=== PATIENT | female | born 1995 | race Caucasian/White ===

== ENCOUNTER 2016-06-13 13:40 | Observation (INO) | payer MEDICAID ==
[~2016-06-13] VITALS: Ht 30.5 cm; Wt 0.5 kg
[~2016-06-13 13:40] MED LIST: ATOR20TA PO; GEMF600T3 PO; METF-312 PO
[2016-06-13] MEDS ORDERED: InsuLIN REG 1unit/0.01ml Soln (100units/ml) SC ONE ×2 (15:00→16:50)
[2016-06-13] MEDS ORDERED: SODIUM CHLORIDE 0.9% 1,000 ML IV ONE (15:00)
[2016-06-13 15:55] LABS: Calcium 8.3 mg/dL (8.5-10.1); Potassium 4.1 mmol/L (3.5-5.1)
[2016-06-13 15:57] LABS: Albumin 1.9 g/dL (3.4-5.0)
[2016-06-13 16:00] LABS: Urine Bilirubin Negative (Negative); Urine Blood Negative /uL (Negative); Urine Color Yellow (Yellow); Urine Glucose 4+ mg/dL (Normal); Urine Ketone Negative (Negative); Urine Nitrite Negative (Negative); Urine RBC <1 /hpf (0 - 4); Urine Squamous Epithelial Cell FEW /hpf (<5); Urine Urobilinogen Normal (Negative); Urine pH 5.5 (5.0-8.0)
[2016-06-13 16:00] LABS: Bilirubin, Total 0.1 mg/dL (0.2-1.0); Total Protein 6.9 g/dL (6.4-8.2)
[2016-06-13 16:08] LABS: Basophils # (auto) 0 uL; Basophils % (auto) 0.4 % (0.0-2.0); Eosinophils # (auto) 0 uL; Eosinophils % (auto) 0.6 % (0.0-7.0); Hematocrit 31.8 % (36.0-46.0); Hemoglobin 10.9 g/dL (12.2-16.2); Lymphocytes # (auto) 1.1 uL; Lymphocytes % (auto) 17.2 % (10.0-50.0); Mean Corpuscular Hemoglobin 27.4 pg (28.0-32.0); Mean Corpuscular Hgb Conc. 34.2 g/dL (32.0-36.0); Mean Corpuscular Volume 80.1 fL (80.0-100.0); Mean Platelet Volume 9.3 fL (7.4-10.4); Monocytes # (auto) 0.4 uL; Monocytes % (auto) 6.6 % (0.0-12.0); Neutrophils % (auto) 75.2 % (37.0-80.0); Platelet Count (auto) 229 10^3/uL (140-450); Red Cell Distribution Width 14.7 % (11.6-16.0); White Blood Cell 6.6 10^3/uL (4.4-10.8)
[2016-06-13] MEDS ORDERED: INSULIN NPH Isophane (HUMAN) 1unit/0.01ml Susp(100units/ml) SC ONE ×2 (17:45→18:23)
== END 2016-06-13 23:05 | disposition left against medical advice (07) | DRG 566 ==
LOC: LDRP 13:40
PROVIDERS: ADMIT Specialist; ATTEND Specialist
DX: O24.313 Unspecified pre-existing diabetes mellitus in pregnancy, third trimester (principal); O40.3XX0 Polyhydramnios, third trimester, not applicable or unspecified; O99.213 Obesity complicating pregnancy, third trimester; Z3A.33 33 weeks gestation of pregnancy
CPT/HCPCS: 36415; 59025; 76805; 76818; 80053; 81001; 81002; 82948; 82962; 83036; 85025; 96360; 96372; G0378; G0434; J1815; J7030; 96365; 96366

== ENCOUNTER 2016-12-12 11:13 | Inpatient (IN) | payer MEDICAID ==
[~2016-12-12] VITALS: Ht 170.2 cm; Wt 130.0 kg
[~2016-12-12 11:13] MED LIST changes: -METF-312 PO; +METF-370 PO
[2016-12-12] MEDS ORDERED: SODIUM CHLORIDE 0.9% 1,000 ML IV ONE (11:24)
[2016-12-12] MEDS ORDERED: PROMETHAZINE HCL 25 MG/ML 1ML IM ONE (12:00)
[2016-12-12] MEDS ORDERED: MORPHINE SULF INJ 2 MG/ML SYRINGE 1ML IV ONE ×2 (12:30→14:00)
[2016-12-12 12:38] LABS: Basophils # (auto) 0.3 uL; Basophils % (auto) 3.6 % (0.0-2.0); Eosinophils # (auto) 0.1 uL; Eosinophils % (auto) 1.3 % (0.0-7.0); Lymphocytes # (auto) 1.5 uL; Lymphocytes % (auto) 20.1 % (10.0-50.0); Monocytes # (auto) 0.4 uL; Neutrophils # (auto) 5.2 uL; Nucleated Red Blood Cells % 0.2 %; Platelet Count (auto) 218 10^3/uL (140-450); Red Cell Distribution Width 15.5 % (11.8-14.3); White Blood Cell 7.5 10^3/uL (4.4-10.8)
[2016-12-12] MEDS ORDERED: InsuLIN REG 1unit/0.01ml Soln (100units/ml) IV ONE (12:45)
[2016-12-12 13:07] LABS: Hemoglobin 14.1 g/dL (12.2-16.2); Mean Corpuscular Hemoglobin 28.9 pg (28.0-32.0); Mean Corpuscular Hgb Conc. 34.4 g/dL (32.0-36.0); Mean Corpuscular Volume 83.9 fL (80.0-100.0)
[2016-12-12 13:50] LABS: BUN/Creatinine Ratio 20.6; Potassium 5.1 mmol/L (3.5-5.1)
[2016-12-12 13:51] LABS: Bilirubin, Total 1.3 mg/dL (0.2-1.0); Calcium 5.8 mg/dL (8.5-10.1); Total Protein 7.7 g/dL (6.4-8.2)
[2016-12-12 13:52] LABS: Albumin 2.2 g/dL (3.4-5.0)
[2016-12-12 14:05] LABS: Urine RBC None Seen /hpf (0 - 4)
[2016-12-12 14:09] LABS: Amylase 157 U/L (25-115)
[2016-12-12 14:14] LABS: Urine Bilirubin Negative (Negative); Urine Blood Negative /uL (Negative); Urine Color Yellow (Yellow); Urine Glucose 4+ mg/dL (Normal); Urine Ketone 2+ (Negative); Urine Nitrite Negative (Negative); Urine Squamous Epithelial Cell FEW /hpf (<5); Urine Urobilinogen Normal (Negative); Urine pH 6.5 (5.0-8.0)
[2016-12-12] MEDS ORDERED: CALCIUM GLUC 4.65meq/50ml D5AE 50 ML IV ONE (14:45)
[2016-12-12] MEDS ORDERED: cefTRIAXone 1GM/50ML D5W 50 ML IV ONE (14:45)
[2016-12-12] MEDS ORDERED: SODIUM CHLORIDE 0.9% 1,000 ML IV SCH (14:53)
[2016-12-12] MEDS ORDERED: NITROGLYCERIN 0.4 MG SL TAB SL PRN (15:00)
[2016-12-12] MEDS ORDERED: MORPHINE SULF INJ 2 MG/ML SYRINGE 1ML IV PRN ×2 (15:00)
[2016-12-12] MEDS ORDERED: DEXTROSE (50%) 50ML SYRG IV PRN (15:00)
[2016-12-12] MEDS ORDERED: HYDROmorphone HCL 2 MG/ML VL ONE (15:10)
[2016-12-12] MEDS ORDERED: PROMETHAZINE HCL 25 MG/ML 1ML ONE (15:10)
[2016-12-12] MEDS ORDERED: PROMETHAZINE HCL 25 MG/ML 1ML IV ONE (15:15)
[2016-12-12] MEDS ORDERED: HYDROmorphone HCL 2 MG/ML VL IV ONE (15:15)
[2016-12-12] MEDS ORDERED: metroNIDAZOLE 500MG/100ML 100 ML IV ONE (15:45)
[2016-12-12] MEDS: ACCU-CHEK COMFORT CURVE STRIP VI SCH ×2 (16:00→20:01)
[2016-12-12] MEDS: InsuLIN REG 1unit/0.01ml Soln (100units/ml) SC SCH ×2 (16:04→20:04)
[2016-12-12] MEDS: LACTATED RINGER'S 1,000 ML IV SCH ×2 (18:41→23:41)
[2016-12-12] MEDS: MORPHINE SULF INJ 2 MG/ML SYRINGE 1ML IV PRN ×4 (18:45→23:21)
[2016-12-12] MEDS: PROMETHAZINE HCL 25 MG/ML 1ML IV PRN (18:45)
[2016-12-12] MEDS ORDERED: KETOROLAC TROMETH 30 MG/ML 1ML VIAL IV ONE (21:15)
[2016-12-12] MEDS: metroNIDAZOLE 500MG/100ML 100 ML IV SCH (22:00)
[2016-12-12] MEDS: FAMOTIDINE (10MG/ML) 2ML VL IV SCH (22:00)
[2016-12-12] MEDS: LORazepam 2MG/ML-1ML VIAL IV PRN (23:40)
[2016-12-13] VITALS (7 sets, daily range): BP systolic 117–135; BP diastolic 75–86
[2016-12-13] MEDS: ACCU-CHEK COMFORT CURVE STRIP VI SCH ×6 (00:24→20:16)
[2016-12-13] MEDS ORDERED: SODIUM CHLORIDE 0.9% 500 ML IV ONE ×2 (00:30→03:00)
[2016-12-13] MEDS ORDERED: HYDROmorphone HCL 2 MG/ML VL IV ONE (00:30)
[2016-12-13 00:36] LABS: Eosinophils # (auto) 0 uL; Hemoglobin 15.2 g/dL (12.2-16.2); Mean Corpuscular Hemoglobin 30.9 pg (28.0-32.0)
[2016-12-13 00:38] LABS: Basophils # (auto) 0.3 uL; Basophils % (auto) 3.8 % (0.0-2.0); Eosinophils % (auto) 0.1 % (0.0-7.0); Hematocrit 41.4 % (36.0-46.0); Lymphocytes # (auto) 0.7 uL; Lymphocytes % (auto) 8.9 % (10.0-50.0); Mean Corpuscular Hgb Conc. 36.8 g/dL (32.0-36.0); Mean Platelet Volume 9.7 fL (6.9-10.8); Monocytes # (auto) 0.5 uL; Monocytes % (auto) 6.5 % (0.0-12.0); Neutrophils # (auto) 6.3 uL; Neutrophils % (auto) 80.7 % (37.0-80.0); Nucleated Red Blood Cells % 0.4 %; Platelet Count (auto) 189 10^3/uL (140-450); Red Cell Distribution Width 15.6 % (11.8-14.3); White Blood Cell 7.8 10^3/uL (4.4-10.8)
[2016-12-13 00:59] LABS: HDL Cholesterol 22 mg/dL (40-59); LDL Cholesterol 83 mg/dL (< 100)
[2016-12-13 01:08] LABS: Cholesterol 348 mg/dL (< 200)
[2016-12-13 01:58] LABS: Triglycerides 4350 mg/dL (< 150)
[2016-12-13] MEDS: MORPHINE SULF INJ 2 MG/ML SYRINGE 1ML IV PRN (03:01)
[2016-12-13] MEDS: PROMETHAZINE HCL 25 MG/ML 1ML IV PRN ×3 (04:00→23:35)
[2016-12-13] MEDS: InsuLIN REG 1unit/0.01ml Soln (100units/ml) SC SCH ×6 (04:27→20:16)
[2016-12-13] MEDS: LORazepam 2MG/ML-1ML VIAL IV PRN ×2 (05:47→20:24)
[2016-12-13] MEDS: metroNIDAZOLE 500MG/100ML 100 ML IV SCH (05:49)
[2016-12-13 05:56] LABS: Basophils # (auto) 0.1 uL; Basophils % (auto) 1.5 % (0.0-2.0); Eosinophils # (auto) 0 uL; Eosinophils % (auto) 0.3 % (0.0-7.0); Hematocrit 41.4 % (36.0-46.0); Hemoglobin 14.7 g/dL (12.2-16.2); Lymphocytes # (auto) 0.7 uL; Lymphocytes % (auto) 10.1 % (10.0-50.0); Mean Corpuscular Hgb Conc. 35.6 g/dL (32.0-36.0); Mean Corpuscular Volume 84.4 fL (80.0-100.0); Mean Platelet Volume 9.5 fL (6.9-10.8); Monocytes # (auto) 0.3 uL; Monocytes % (auto) 4.4 % (0.0-12.0); Neutrophils # (auto) 5.9 uL; Neutrophils % (auto) 83.7 % (37.0-80.0); Nucleated Red Blood Cells % 0.1 %; Platelet Count (auto) 196 10^3/uL (140-450); Red Cell Distribution Width 15.5 % (11.8-14.3); White Blood Cell 7.1 10^3/uL (4.4-10.8)
[2016-12-13] MEDS: LACTATED RINGER'S 1,000 ML IV SCH (06:13)
[2016-12-13] MEDS ORDERED: HYDROmorphone HCL 2 MG/ML VL IV PRN (06:15)
[2016-12-13] MEDS: LEVOTHYROXINE SODIUM 50 MCG TAB PO SCH (06:26)
[2016-12-13 08:41] LABS: Potassium 5.4 mmol/L (3.5-5.1)
[2016-12-13 08:42] LABS: Albumin 1.9 g/dL (3.4-5.0); BUN/Creatinine Ratio 14.5; Bilirubin, Total 0.6 mg/dL (0.2-1.0); Total Protein 7.2 g/dL (6.4-8.2)
[2016-12-13] MEDS: cefTRIAXone 1GM/50ML D5W 50 ML IV SCH (08:43)
[2016-12-13] MEDS: FAMOTIDINE (10MG/ML) 2ML VL IV SCH ×2 (09:27→22:15)
[2016-12-13] MEDS: SODIUM CHLORIDE 0.9% 1,000 ML IV SCH ×3 (11:15→21:27)
[2016-12-13] MEDS: HYDROmorphone HCL 2 MG/ML VL IV PRN ×6 (12:00→22:19)
[2016-12-13] MEDS ORDERED: ENOXAPARIN SOD 40 MG/0.4 ML SYRINGE SC ONE (12:45)
[2016-12-13] MEDS ORDERED: LEVOTHYROXINE SODIUM 50 MCG TAB PO ONE (12:45)
[2016-12-13] MEDS ORDERED: INSULIN DETEMIR(LEVEMIR) 1unit/0.01ml Soln (100units/ml) SC SCH (22:00)
[2016-12-13] MEDS: ATORVASTATIN 20 MG TAB PO SCH (22:15)
[2016-12-13] MEDS: GEMFIBROZIL 600 MG TAB PO SCH (22:15)
[2016-12-14] MEDS: InsuLIN REG 1unit/0.01ml Soln (100units/ml) SC SCH ×7 (00:27→23:58)
[2016-12-14] MEDS: HYDROmorphone HCL 2 MG/ML VL IV PRN ×10 (00:27→23:58)
[2016-12-14] MEDS: ACCU-CHEK COMFORT CURVE STRIP VI SCH ×7 (00:27→23:59)
[2016-12-14] MEDS: LORazepam 2MG/ML-1ML VIAL IV PRN (02:28)
[2016-12-14] MEDS: LEVOTHYROXINE SODIUM 50 MCG TAB PO SCH ×2 (04:18→06:31)
[2016-12-14] MEDS: SODIUM CHLORIDE 0.9% 1,000 ML IV SCH ×3 (04:19→20:46)
[2016-12-14 05:00] VITALS: BP 146/81
[2016-12-14 06:21] LABS: Basophils # (auto) 0 uL; Basophils % (auto) 0.6 % (0.0-2.0); Eosinophils # (auto) 0.1 uL; Eosinophils % (auto) 1.1 % (0.0-7.0); Hematocrit 38.4 % (36.0-46.0); Lymphocytes # (auto) 0.8 uL; Lymphocytes % (auto) 15.7 % (10.0-50.0); Mean Corpuscular Hemoglobin 28.7 pg (28.0-32.0); Mean Corpuscular Hgb Conc. 33.9 g/dL (32.0-36.0); Mean Corpuscular Volume 84.8 fL (80.0-100.0); Mean Platelet Volume 9.2 fL (6.9-10.8); Monocytes # (auto) 0.4 uL; Neutrophils % (auto) 75.6 % (37.0-80.0); Nucleated Red Blood Cells % 0.2 %; Platelet Count (auto) 151 10^3/uL (140-450); Red Cell Distribution Width 16.2 % (11.8-14.3); White Blood Cell 5.3 10^3/uL (4.4-10.8)
[2016-12-14 06:50] LABS: Albumin 1.9 g/dL (3.4-5.0); Alkaline Phosphatase 112 U/L (45-117); Amylase 121 U/L (25-115); Anion Gap 9 (5-15); Aspartate Aminotransferase 29 U/L (15-37); BUN/Creatinine Ratio 13.6; Bilirubin, Total 0.6 mg/dL (0.2-1.0); Blood Urea Nitrogen 6 mg/dL (7-18); Calcium 6.8 mg/dL (8.5-10.1); Carbon Dioxide 22 mmol/L (21-32); Chloride 99 mmol/L (98-107); Cholesterol 243 mg/dL (< 200); GFR African American 228 mL/min; GFR Non-African American 188 mL/min; Glucose 274 mg/dL (74-106); HDL Cholesterol 13 mg/dL (40-59); Potassium 3.5 mmol/L (3.5-5.1); Sodium 130 mmol/L (136-145); Total Protein 6.7 g/dL (6.4-8.2)
[2016-12-14 06:53] LABS: Triglycerides 1573 mg/dL (< 150)
[2016-12-14] MEDS: cefTRIAXone 1GM/50ML D5W 50 ML IV SCH (08:31)
[2016-12-14 09:00] VITALS: BP 145/75
[2016-12-14] MEDS: ENOXAPARIN SOD 40 MG/0.4 ML SYRINGE SC SCH (12:06)
[2016-12-14] MEDS: FAMOTIDINE (10MG/ML) 2ML VL IV SCH ×2 (12:06→22:02)
[2016-12-14] MEDS: GEMFIBROZIL 600 MG TAB PO SCH ×2 (12:06→22:03)
[2016-12-14 13:00] VITALS: BP 126/71
[2016-12-14 17:00] VITALS: BP 128/76
[2016-12-14 20:00] VITALS: BP 146/73
[2016-12-14 22:00] VITALS: BP 146/73
[2016-12-14] MEDS: ATORVASTATIN 20 MG TAB PO SCH (22:03)
[2016-12-14] MEDS: INSULIN DETEMIR(LEVEMIR) 1unit/0.01ml Soln (100units/ml) SC SCH (22:04)
[2016-12-15] MEDS: HYDROmorphone HCL 2 MG/ML VL IV PRN ×9 (01:56→21:50)
[2016-12-15] MEDS: SODIUM CHLORIDE 0.9% 1,000 ML IV SCH ×2 (03:30→10:31)
[2016-12-15] MEDS: InsuLIN REG 1unit/0.01ml Soln (100units/ml) SC SCH ×6 (04:00→23:39)
[2016-12-15] MEDS: ACCU-CHEK COMFORT CURVE STRIP VI SCH ×6 (04:00→23:39)
[2016-12-15 05:00] VITALS: BP 118/76
[2016-12-15 05:41] LABS: Amylase 80 U/L (25-115)
[2016-12-15] MEDS: LEVOTHYROXINE SODIUM 50 MCG TAB PO SCH (06:11)
[2016-12-15] MEDS: cefTRIAXone 1GM/50ML D5W 50 ML IV SCH (08:41)
[2016-12-15 09:18] VITALS: BP 124/71
[2016-12-15] MEDS: GEMFIBROZIL 600 MG TAB PO SCH ×2 (10:29→21:49)
[2016-12-15] MEDS: FAMOTIDINE (10MG/ML) 2ML VL IV SCH ×2 (10:29→21:50)
[2016-12-15] MEDS: ENOXAPARIN SOD 40 MG/0.4 ML SYRINGE SC SCH (10:29)
[2016-12-15 13:00] VITALS: BP 124/67
[2016-12-15] MEDS ORDERED: PPN PER PHARMACY 0 ML IV SCH (13:30)
[2016-12-15 16:56] LABS: Albumin 1.4 g/dL (3.4-5.0); BUN/Creatinine Ratio 33.3; Bilirubin, Total 0.5 mg/dL (0.2-1.0); Calcium 7.1 mg/dL (8.5-10.1); Potassium 4.8 mmol/L (3.5-5.1); Total Protein 6.4 g/dL (6.4-8.2)
[2016-12-15 17:00] VITALS: BP 122/68
[2016-12-15] MEDS ORDERED: CLINIMIX PER PHARMACY IV NR ×8 (20:00)
[2016-12-15] MEDS: ATORVASTATIN 20 MG TAB PO SCH (21:49)
[2016-12-15 22:00] VITALS: BP 120/77
[2016-12-15] MEDS: INSULIN DETEMIR(LEVEMIR) 1unit/0.01ml Soln (100units/ml) SC SCH (22:00)
[2016-12-15] MEDS: PROMETHAZINE HCL 25 MG/ML 1ML IV PRN (22:39)
[2016-12-16] MEDS: HYDROmorphone HCL 2 MG/ML VL IV PRN ×13 (00:04→22:46)
[2016-12-16] MEDS: InsuLIN REG 1unit/0.01ml Soln (100units/ml) SC SCH ×5 (04:08→20:18)
[2016-12-16] MEDS: ACCU-CHEK COMFORT CURVE STRIP VI SCH ×5 (04:08→20:18)
[2016-12-16 05:00] VITALS: BP 149/86
[2016-12-16] MEDS: PROMETHAZINE HCL 25 MG/ML 1ML IV PRN ×3 (05:25→18:01)
[2016-12-16] MEDS: LEVOTHYROXINE SODIUM 50 MCG TAB PO SCH (05:26)
[2016-12-16 06:51] LABS: Albumin 1.7 g/dL (3.4-5.0); BUN/Creatinine Ratio 21.4; Bilirubin, Total 0.6 mg/dL (0.2-1.0); Calcium 7.5 mg/dL (8.5-10.1); Magnesium 1.8 mg/dL (1.6-2.6); Phosphorus 1.7 mg/dL (2.5-4.90); Potassium 3.5 mmol/L (3.5-5.1); Total Protein 6.9 g/dL (6.4-8.2)
[2016-12-16 07:30] VITALS: BP 133/85
[2016-12-16 09:00] VITALS: BP 133/85
[2016-12-16] MEDS ORDERED: POTASSIUM PHOSPHATE 44 MEQ in NS 0.9% 250 ML IV ONE (09:00)
[2016-12-16] MEDS: FAMOTIDINE (10MG/ML) 2ML VL IV SCH ×2 (09:13→23:21)
[2016-12-16] MEDS: ENOXAPARIN SOD 40 MG/0.4 ML SYRINGE SC SCH (09:14)
[2016-12-16] MEDS: cefTRIAXone 1GM/50ML D5W 50 ML IV SCH (09:23)
[2016-12-16] MEDS ORDERED: IOHEXOL 300 MG/ML 100ML BOTTLE IJ ONE (09:40)
[2016-12-16] MEDS: GEMFIBROZIL 600 MG TAB PO SCH ×2 (09:53→23:22)
[2016-12-16] MEDS: SODIUM CHLORIDE 0.9% 1,000 ML IV SCH ×2 (11:15→21:15)
[2016-12-16 13:00] VITALS: BP 137/80
[2016-12-16 17:00] VITALS: BP 130/84
[2016-12-16] MEDS ORDERED: CLINIMIX PER PHARMACY IV NR ×9 (20:00)
[2016-12-16] MEDS: INSULIN DETEMIR(LEVEMIR) 1unit/0.01ml Soln (100units/ml) SC SCH (22:00)
[2016-12-16 22:14] VITALS: BP 130/77
[2016-12-16] MEDS: ATORVASTATIN 20 MG TAB PO SCH (23:21)
[2016-12-17] MEDS: PIPERACILLIN-TAZOB 3.375GM 100 ML IV SCH ×5 (00:43→22:59)
[2016-12-17] MEDS: HYDROmorphone HCL 2 MG/ML VL IV PRN ×12 (00:45→22:58)
[2016-12-17] MEDS: ACCU-CHEK COMFORT CURVE STRIP VI SCH ×7 (04:00→22:58)
[2016-12-17] MEDS: InsuLIN REG 1unit/0.01ml Soln (100units/ml) SC SCH ×7 (04:00→22:59)
[2016-12-17 05:23] VITALS: BP 152/90
[2016-12-17] MEDS: LEVOTHYROXINE SODIUM 50 MCG TAB PO SCH (06:43)
[2016-12-17] MEDS: SODIUM CHLORIDE 0.9% 1,000 ML IV SCH ×3 (06:51→22:58)
[2016-12-17 07:08] LABS: Albumin 1.6 g/dL (3.4-5.0); BUN/Creatinine Ratio 13.5; Bilirubin, Total 0.4 mg/dL (0.2-1.0); Calcium 7.8 mg/dL (8.5-10.1); Magnesium 1.8 mg/dL (1.6-2.6); Phosphorus 2.2 mg/dL (2.5-4.90); Potassium 3.7 mmol/L (3.5-5.1); Total Protein 6.7 g/dL (6.4-8.2)
[2016-12-17 08:00] VITALS: BP 135/74
[2016-12-17 09:00] VITALS: BP 135/74
[2016-12-17] MEDS ORDERED: SODIUM PHOSPHATES 20 MEQ in SODIUM CHL 0.9% 100 ML IV ONE (09:00)
[2016-12-17] MEDS: FAMOTIDINE (10MG/ML) 2ML VL IV SCH ×2 (10:53→21:11)
[2016-12-17] MEDS: GEMFIBROZIL 600 MG TAB PO SCH ×2 (10:58→21:12)
[2016-12-17] MEDS: ENOXAPARIN SOD 40 MG/0.4 ML SYRINGE SC SCH (10:58)
[2016-12-17 13:00] VITALS: BP 144/85
[2016-12-17 14:40] LABS: INR 0.98 (0.9-1.15); Prothrombin Time 10.7 sec (9.37-12.3)
[2016-12-17] MEDS ORDERED: LIDOCAINE 1% HCL (LOCAL ANESTH.) INJ 20ML MDV ID ONE (15:15)
[2016-12-17 17:00] VITALS: BP 140/75
[2016-12-17 20:00] VITALS: BP 136/79
[2016-12-17] MEDS ORDERED: CLINIMIX PER PHARMACY IV NR ×8 (20:00)
[2016-12-17] MEDS: PROMETHAZINE HCL 25 MG/ML 1ML IV PRN (21:04)
[2016-12-17] MEDS: ATORVASTATIN 20 MG TAB PO SCH (21:12)
[2016-12-17] MEDS ORDERED: INSULIN DETEMIR(LEVEMIR) 1unit/0.01ml Soln (100units/ml) SC SCH (22:00)
[2016-12-17] MEDS: SODIUM CHLOR 0.9% PF (SALINE LOCK) 10ML VIAL IV SCH (22:57)
[2016-12-18] MEDS: HYDROmorphone HCL 2 MG/ML VL IV PRN ×9 (00:54→15:14)
[2016-12-18] MEDS: PROMETHAZINE HCL 25 MG/ML 1ML IV PRN (03:01)
[2016-12-18] MEDS: ACCU-CHEK COMFORT CURVE STRIP VI SCH ×5 (04:36→20:00)
[2016-12-18] MEDS: InsuLIN REG 1unit/0.01ml Soln (100units/ml) SC SCH ×5 (04:37→20:00)
[2016-12-18] MEDS: LEVOTHYROXINE SODIUM 50 MCG TAB PO SCH (04:56)
[2016-12-18] MEDS: PIPERACILLIN-TAZOB 3.375GM 100 ML IV SCH ×3 (05:01→18:26)
[2016-12-18 05:18] VITALS: BP 140/84
[2016-12-18 07:44] VITALS: BP 152/81
[2016-12-18 08:00] VITALS: BP 152/81
[2016-12-18 08:03] LABS: Hematocrit 31.2 % (36.0-46.0); Hemoglobin 10.3 g/dL (12.2-16.2); Mean Corpuscular Hgb Conc. 33.1 g/dL (32.0-36.0); Mean Corpuscular Volume 84.8 fL (80.0-100.0); Platelet Count (auto) 164 10^3/uL (140-450); Red Cell Distribution Width 16.4 % (11.8-14.3); White Blood Cell 4.7 10^3/uL (4.4-10.8)
[2016-12-18 08:18] LABS: Metamyelocytes % 0; Myelocytes % 0; Promyelocytes % 0; Reactive Lymphocytes 0
[2016-12-18 08:27] LABS: Albumin 1.6 g/dL (3.4-5.0); BUN/Creatinine Ratio 21.2; Bilirubin, Total 0.3 mg/dL (0.2-1.0); Calcium 7.9 mg/dL (8.5-10.1); Magnesium 1.8 mg/dL (1.6-2.6); Phosphorus 2.5 mg/dL (2.5-4.90); Potassium 3.5 mmol/L (3.5-5.1); Total Protein 6.8 g/dL (6.4-8.2)
[2016-12-18 09:20] LABS: Platelet Estimate Adequate
[2016-12-18] MEDS: SODIUM CHLOR 0.9% PF (SALINE LOCK) 10ML VIAL IV SCH ×2 (10:00→21:26)
[2016-12-18] MEDS: GEMFIBROZIL 600 MG TAB PO SCH ×2 (10:00→21:25)
[2016-12-18] MEDS: ENOXAPARIN SOD 40 MG/0.4 ML SYRINGE SC SCH (10:21)
[2016-12-18] MEDS: FAMOTIDINE (10MG/ML) 2ML VL IV SCH ×2 (10:21→21:29)
[2016-12-18 12:24] VITALS: BP 135/78
[2016-12-18] MEDS: SODIUM CHLORIDE 0.9% 1,000 ML IV SCH ×2 (13:15→21:29)
[2016-12-18] MEDS ORDERED: HYDROMORPHONE PCA IN NS 50 ML IV SCH (15:22)
[2016-12-18] MEDS ORDERED: NALOXONE HCL 0.4 MG/ML VIAL IV ONE (15:30)
[2016-12-18 16:29] VITALS: BP 127/80
[2016-12-18] MEDS ORDERED: TPN PER PHARMACY IV NR ×11 (20:00)
[2016-12-18] MEDS: ATORVASTATIN 20 MG TAB PO SCH (21:26)
[2016-12-18 22:00] VITALS: BP 133/69
[2016-12-18] MEDS ORDERED: INSULIN DETEMIR(LEVEMIR) 1unit/0.01ml Soln (100units/ml) SC SCH (22:00)
[2016-12-19] MEDS: InsuLIN REG 1unit/0.01ml Soln (100units/ml) SC SCH ×6 (00:29→20:17)
[2016-12-19] MEDS: PIPERACILLIN-TAZOB 3.375GM 100 ML IV SCH ×4 (00:29→18:21)
[2016-12-19] MEDS: ACCU-CHEK COMFORT CURVE STRIP VI SCH ×6 (00:29→20:17)
[2016-12-19 05:00] VITALS: BP 125/70
[2016-12-19] MEDS: LEVOTHYROXINE SODIUM 50 MCG TAB PO SCH (06:32)
[2016-12-19 07:29] LABS: Albumin 1.3 g/dL (3.4-5.0); Alkaline Phosphatase 178 U/L (45-117); Anion Gap 10 (5-15); Aspartate Aminotransferase 31 U/L (15-37); BUN/Creatinine Ratio 33.3; Bilirubin, Total < 0.1 mg/dL (0.2-1.0); Blood Urea Nitrogen 6 mg/dL (7-18); Calcium 6.6 mg/dL (8.5-10.1); Carbon Dioxide 21 mmol/L (21-32); Chloride 108 mmol/L (98-107); GFR African American 639 mL/min; GFR Non-African American 528 mL/min; Glucose 172 mg/dL (74-106); Magnesium 1.7 mg/dL (1.6-2.6); Phosphorus 2.5 mg/dL (2.5-4.90); Potassium 3.6 mmol/L (3.5-5.1); Sodium 139 mmol/L (136-145); Total Protein 5.3 g/dL (6.4-8.2); Triglycerides 371 mg/dL (< 150)
[2016-12-19 07:34] VITALS: BP 137/77
[2016-12-19] MEDS: PROMETHAZINE HCL 25 MG/ML 1ML IV PRN ×2 (08:58→13:06)
[2016-12-19] MEDS: FAMOTIDINE (10MG/ML) 2ML VL IV SCH ×2 (08:59→22:13)
[2016-12-19] MEDS: SODIUM CHLOR 0.9% PF (SALINE LOCK) 10ML VIAL IV SCH ×2 (08:59→22:13)
[2016-12-19] MEDS: ENOXAPARIN SOD 40 MG/0.4 ML SYRINGE SC SCH (08:59)
[2016-12-19] MEDS: GEMFIBROZIL 600 MG TAB PO SCH ×2 (09:08→22:14)
[2016-12-19] MEDS: SODIUM CHLORIDE 0.9% 1,000 ML IV SCH ×2 (09:15→20:19)
[2016-12-19 12:16] VITALS: BP 124/72
[2016-12-19 16:36] VITALS: BP 126/75
[2016-12-19] MEDS ORDERED: LORazepam 2MG/ML-1ML VIAL IV PRN (17:45)
[2016-12-19] MEDS ORDERED: HYDROMORPHONE PCA IN NS 50 ML IV SCH (18:00)
[2016-12-19] MEDS ORDERED: TPN PER PHARMACY IV NR ×9 (20:00)
[2016-12-19 22:00] VITALS: BP 119/71
[2016-12-19] MEDS: ATORVASTATIN 20 MG TAB PO SCH (22:14)
[2016-12-19] MEDS: INSULIN DETEMIR(LEVEMIR) 1unit/0.01ml Soln (100units/ml) SC SCH (22:29)
[2016-12-20] MEDS: ACCU-CHEK COMFORT CURVE STRIP VI SCH ×7 (00:12→23:29)
[2016-12-20] MEDS: PIPERACILLIN-TAZOB 3.375GM 100 ML IV SCH ×5 (00:12→23:29)
[2016-12-20] MEDS: InsuLIN REG 1unit/0.01ml Soln (100units/ml) SC SCH ×7 (00:25→23:30)
[2016-12-20 05:06] VITALS: BP 110/68
[2016-12-20] MEDS: SODIUM CHLORIDE 0.9% 1,000 ML IV SCH ×2 (05:40→15:15)
[2016-12-20 06:05] LABS: Hematocrit 27.4 % (36.0-46.0); Hemoglobin 9.2 g/dL (12.2-16.2); Mean Corpuscular Hemoglobin 28.3 pg (28.0-32.0); Mean Corpuscular Hgb Conc. 33.4 g/dL (32.0-36.0); Mean Corpuscular Volume 84.8 fL (80.0-100.0); Mean Platelet Volume 9.1 fL (6.9-10.8); Platelet Count (auto) 152 10^3/uL (140-450); White Blood Cell 3.2 10^3/uL (4.4-10.8)
[2016-12-20 06:08] LABS: Albumin 1.5 g/dL (3.4-5.0); BUN/Creatinine Ratio 25.9; Bilirubin, Total 0.2 mg/dL (0.2-1.0); Calcium 7.2 mg/dL (8.5-10.1); Magnesium 1.7 mg/dL (1.6-2.6); Total Protein 5.7 g/dL (6.4-8.2)
[2016-12-20 06:16] LABS: Promyelocytes % 0; Reactive Lymphocytes 0
[2016-12-20] MEDS: LEVOTHYROXINE SODIUM 50 MCG TAB PO SCH (06:28)
[2016-12-20 06:45] LABS: Metamyelocytes % 3; Myelocytes % 2
[2016-12-20 06:49] LABS: Platelet Estimate Adequate; RBC Morphology Normal
[2016-12-20 09:00] VITALS: BP 123/72
[2016-12-20] MEDS: ENOXAPARIN SOD 40 MG/0.4 ML SYRINGE SC SCH (09:16)
[2016-12-20] MEDS: SODIUM CHLOR 0.9% PF (SALINE LOCK) 10ML VIAL IV SCH ×2 (09:17→22:48)
[2016-12-20] MEDS: FAMOTIDINE (10MG/ML) 2ML VL IV SCH ×2 (09:18→22:47)
[2016-12-20] MEDS: GEMFIBROZIL 600 MG TAB PO SCH ×2 (09:18→22:48)
[2016-12-20] MEDS ORDERED: TPN PER PHARMACY 500 ML IV SCH (12:45)
[2016-12-20 13:00] VITALS: BP 120/70
[2016-12-20] MEDS ORDERED: POTASSIUM CHLORIDE IV SCH ×4 (13:45)
[2016-12-20] MEDS ORDERED: SODIUM CHL 0.9% IV SCH ×4 (13:45)
[2016-12-20] MEDS ORDERED: SODIUM CHL 0.9% IV ONE (14:00)
[2016-12-20] MEDS ORDERED: POTASSIUM CHLORIDE IV ONE (14:00)
[2016-12-20 17:00] VITALS: BP 135/70
[2016-12-20] MEDS: PROMETHAZINE HCL 25 MG/ML 1ML IV PRN ×2 (17:18→23:15)
[2016-12-20] MEDS ORDERED: HYDROMORPHONE PCA IN NS 50 ML IV SCH (18:28)
[2016-12-20] MEDS ORDERED: TPN PER PHARMACY IV NR ×10 (20:00)
[2016-12-20 22:00] VITALS: BP 137/81
[2016-12-20] MEDS: ATORVASTATIN 20 MG TAB PO SCH (22:48)
[2016-12-20] MEDS: INSULIN DETEMIR(LEVEMIR) 1unit/0.01ml Soln (100units/ml) SC SCH (23:27)
[2016-12-21] MEDS: SODIUM CHLORIDE 0.9% 1,000 ML IV SCH ×3 (01:15→21:45)
[2016-12-21] MEDS: ACCU-CHEK COMFORT CURVE STRIP VI SCH ×5 (03:52→20:19)
[2016-12-21] MEDS: InsuLIN REG 1unit/0.01ml Soln (100units/ml) SC SCH ×5 (04:00→20:20)
[2016-12-21 04:58] VITALS: BP 128/74
[2016-12-21] MEDS: PIPERACILLIN-TAZOB 3.375GM 100 ML IV SCH ×4 (05:40→23:48)
[2016-12-21 06:27] LABS: Hematocrit 26.5 % (36.0-46.0); Hemoglobin 8.7 g/dL (12.2-16.2); Mean Corpuscular Hemoglobin 28.1 pg (28.0-32.0); Mean Corpuscular Volume 85.2 fL (80.0-100.0); Mean Platelet Volume 8.6 fL (6.9-10.8); Platelet Count (auto) 163 10^3/uL (140-450); Red Cell Distribution Width 16.4 % (11.8-14.3); White Blood Cell 3.4 10^3/uL (4.4-10.8)
[2016-12-21 06:29] LABS: Metamyelocytes % 0; Myelocytes % 0; Promyelocytes % 0; Reactive Lymphocytes 0
[2016-12-21 06:57] LABS: Albumin 1.5 g/dL (3.4-5.0); BUN/Creatinine Ratio 16.7; Bilirubin, Total 0.1 mg/dL (0.2-1.0); Calcium 7.1 mg/dL (8.5-10.1); Magnesium 1.6 mg/dL (1.6-2.6); Phosphorus 2.7 mg/dL (2.5-4.90); Potassium 3.2 mmol/L (3.5-5.1); Total Protein 5.5 g/dL (6.4-8.2)
[2016-12-21] MEDS: LEVOTHYROXINE SODIUM 50 MCG TAB PO SCH (06:58)
[2016-12-21] MEDS: ENOXAPARIN SOD 40 MG/0.4 ML SYRINGE SC SCH (08:56)
[2016-12-21] MEDS: SODIUM CHLOR 0.9% PF (SALINE LOCK) 10ML VIAL IV SCH ×2 (08:57→21:44)
[2016-12-21] MEDS: GEMFIBROZIL 600 MG TAB PO SCH ×2 (08:57→21:43)
[2016-12-21] MEDS: FAMOTIDINE (10MG/ML) 2ML VL IV SCH ×2 (08:57→21:43)
[2016-12-21 09:02] VITALS: BP 119/78
[2016-12-21 10:17] LABS: Giant Platelets Few; Platelet Estimate Adequate
[2016-12-21] MEDS ORDERED: POTASSIUM PHOSPHATE 44 MEQ in SODIUM CHL 0.9% 250 ML IV ONE (12:30)
[2016-12-21 13:13] VITALS: BP 128/89
[2016-12-21] MEDS: HYDROmorphone HCL 2 MG/ML VL IV PRN ×4 (16:07→23:23)
[2016-12-21] MEDS: PROMETHAZINE HCL 25 MG/ML 1ML IV PRN ×2 (16:18→20:28)
[2016-12-21 16:38] VITALS: BP 130/95
[2016-12-21] MEDS ORDERED: TPN PER PHARMACY IV NR ×9 (20:00)
[2016-12-21 21:30] VITALS: BP 127/74
[2016-12-21] MEDS: ATORVASTATIN 20 MG TAB PO SCH (21:43)
[2016-12-21] MEDS: INSULIN DETEMIR(LEVEMIR) 1unit/0.01ml Soln (100units/ml) SC SCH (21:44)
[2016-12-22] MEDS: InsuLIN REG 1unit/0.01ml Soln (100units/ml) SC SCH ×6 (00:10→20:04)
[2016-12-22] MEDS: ACCU-CHEK COMFORT CURVE STRIP VI SCH ×6 (00:11→20:04)
[2016-12-22] MEDS: HYDROmorphone HCL 2 MG/ML VL IV PRN ×9 (02:26→22:51)
[2016-12-22 05:00] VITALS: BP 127/83
[2016-12-22] MEDS: PROMETHAZINE HCL 25 MG/ML 1ML IV PRN ×3 (05:38→15:53)
[2016-12-22] MEDS: LEVOTHYROXINE SODIUM 50 MCG TAB PO SCH (05:51)
[2016-12-22] MEDS: PIPERACILLIN-TAZOB 3.375GM 100 ML IV SCH ×3 (05:51→17:55)
[2016-12-22] MEDS: SODIUM CHLORIDE 0.9% 1,000 ML IV SCH ×2 (06:28→17:15)
[2016-12-22 08:55] LABS: Albumin 1.9 g/dL (3.4-5.0); BUN/Creatinine Ratio 13.2; Bilirubin, Total 0.2 mg/dL (0.2-1.0); Calcium 8.2 mg/dL (8.5-10.1); Magnesium 1.9 mg/dL (1.6-2.6); Phosphorus 4.4 mg/dL (2.5-4.90); Potassium 3.6 mmol/L (3.5-5.1); Total Protein 6.5 g/dL (6.4-8.2)
[2016-12-22 09:00] VITALS: BP 130/80
[2016-12-22] MEDS: FAMOTIDINE (10MG/ML) 2ML VL IV SCH ×2 (10:32→22:16)
[2016-12-22] MEDS: GEMFIBROZIL 600 MG TAB PO SCH ×2 (10:33→22:16)
[2016-12-22] MEDS: SODIUM CHLOR 0.9% PF (SALINE LOCK) 10ML VIAL IV SCH (10:33)
[2016-12-22] MEDS: ENOXAPARIN SOD 40 MG/0.4 ML SYRINGE SC SCH (10:34)
[2016-12-22 13:33] VITALS: BP 132/79
[2016-12-22 17:00] VITALS: BP 121/74
[2016-12-22] MEDS ORDERED: TPN PER PHARMACY IV NR ×19 (20:00)
[2016-12-22 21:28] VITALS: BP 126/74
[2016-12-22] MEDS: INSULIN DETEMIR(LEVEMIR) 1unit/0.01ml Soln (100units/ml) SC SCH (22:00)
[2016-12-22] MEDS: ATORVASTATIN 20 MG TAB PO SCH (22:16)
[2016-12-23] MEDS: PIPERACILLIN-TAZOB 3.375GM 100 ML IV SCH ×4 (00:25→18:22)
[2016-12-23] MEDS: SODIUM CHLOR 0.9% PF (SALINE LOCK) 10ML VIAL IV SCH ×3 (00:25→22:07)
[2016-12-23] MEDS: PROMETHAZINE HCL 25 MG/ML 1ML IV PRN ×3 (00:59→20:36)
[2016-12-23] MEDS: HYDROmorphone HCL 2 MG/ML VL IV PRN ×9 (01:00→21:18)
[2016-12-23] MEDS: InsuLIN REG 1unit/0.01ml Soln (100units/ml) SC SCH ×6 (04:00→20:29)
[2016-12-23] MEDS: ACCU-CHEK COMFORT CURVE STRIP VI SCH ×6 (04:00→20:29)
[2016-12-23 05:37] VITALS: BP 151/75
[2016-12-23] MEDS: SODIUM CHLORIDE 0.9% 1,000 ML IV SCH ×2 (06:12→13:15)
[2016-12-23] MEDS: LEVOTHYROXINE SODIUM 50 MCG TAB PO SCH (06:36)
[2016-12-23 07:01] LABS: Basophils # (auto) 0 uL; Basophils % (auto) 0.5 % (0.0-2.0); Eosinophils # (auto) 0.1 uL; Eosinophils % (auto) 2.2 % (0.0-7.0); Hematocrit 30.1 % (36.0-46.0); Hemoglobin 9.9 g/dL (12.2-16.2); Lymphocytes # (auto) 1.2 uL; Lymphocytes % (auto) 27.1 % (10.0-50.0); Mean Corpuscular Hemoglobin 28.1 pg (28.0-32.0); Mean Corpuscular Hgb Conc. 32.8 g/dL (32.0-36.0); Mean Corpuscular Volume 85.6 fL (80.0-100.0); Mean Platelet Volume 8.9 fL (6.9-10.8); Monocytes # (auto) 0.3 uL; Monocytes % (auto) 6.2 % (0.0-12.0); Neutrophils # (auto) 2.8 uL; Nucleated Red Blood Cells % 0.1 %; Platelet Count (auto) 194 10^3/uL (140-450); Red Cell Distribution Width 16.4 % (11.8-14.3); White Blood Cell 4.4 10^3/uL (4.4-10.8)
[2016-12-23 07:35] LABS: Albumin 1.8 g/dL (3.4-5.0); Bilirubin, Total 0.2 mg/dL (0.2-1.0); Calcium 7.9 mg/dL (8.5-10.1); Potassium 3.6 mmol/L (3.5-5.1); Total Protein 6.2 g/dL (6.4-8.2)
[2016-12-23 08:00] VITALS: BP 118/85
[2016-12-23] MEDS: GEMFIBROZIL 600 MG TAB PO SCH ×2 (08:28→22:08)
[2016-12-23] MEDS: ENOXAPARIN SOD 40 MG/0.4 ML SYRINGE SC SCH (08:28)
[2016-12-23] MEDS: FAMOTIDINE (10MG/ML) 2ML VL IV SCH ×2 (08:28→22:07)
[2016-12-23 09:00] VITALS: BP 118/85
[2016-12-23 13:00] VITALS: BP 123/64
[2016-12-23 16:54] VITALS: BP 123/75
[2016-12-23] MEDS ORDERED: TPN PER PHARMACY IV NR ×10 (20:00)
[2016-12-23 22:00] VITALS: BP 126/74
[2016-12-23] MEDS: ATORVASTATIN 20 MG TAB PO SCH (22:07)
[2016-12-23] MEDS: INSULIN DETEMIR(LEVEMIR) 1unit/0.01ml Soln (100units/ml) SC SCH (22:16)
[2016-12-24] MEDS: PIPERACILLIN-TAZOB 3.375GM 100 ML IV SCH ×5 (00:15→23:40)
[2016-12-24] MEDS: SODIUM CHLORIDE 0.9% 1,000 ML IV SCH ×3 (00:16→20:37)
[2016-12-24] MEDS: HYDROmorphone HCL 2 MG/ML VL IV PRN ×6 (00:20→20:49)
[2016-12-24] MEDS: InsuLIN REG 1unit/0.01ml Soln (100units/ml) SC SCH ×6 (04:00→20:49)
[2016-12-24] MEDS: ACCU-CHEK COMFORT CURVE STRIP VI SCH ×6 (04:00→20:37)
[2016-12-24] MEDS: PROMETHAZINE HCL 25 MG/ML 1ML IV PRN ×4 (04:57→23:02)
[2016-12-24 05:00] VITALS: BP 121/73
[2016-12-24 06:21] LABS: Albumin 2.1 g/dL (3.4-5.0); BUN/Creatinine Ratio 20.5; Bilirubin, Total 0.2 mg/dL (0.2-1.0); Calcium 8.4 mg/dL (8.5-10.1); Phosphorus 3.6 mg/dL (2.5-4.90); Potassium 4.1 mmol/L (3.5-5.1); Total Protein 6.9 g/dL (6.4-8.2)
[2016-12-24] MEDS: LEVOTHYROXINE SODIUM 50 MCG TAB PO SCH (06:35)
[2016-12-24 07:58] VITALS: BP 154/86
[2016-12-24] MEDS: FAMOTIDINE (10MG/ML) 2ML VL IV SCH ×2 (09:49→23:03)
[2016-12-24] MEDS: SODIUM CHLOR 0.9% PF (SALINE LOCK) 10ML VIAL IV SCH ×2 (09:49→22:26)
[2016-12-24] MEDS: ENOXAPARIN SOD 40 MG/0.4 ML SYRINGE SC SCH (09:49)
[2016-12-24] MEDS: GEMFIBROZIL 600 MG TAB PO SCH ×2 (09:49→23:04)
[2016-12-24 13:25] VITALS: BP 146/85
[2016-12-24 16:37] VITALS: BP 154/86
[2016-12-24 16:53] VITALS: BP 125/88
[2016-12-24] MEDS ORDERED: TPN PER PHARMACY IV NR ×9 (20:00)
[2016-12-24 22:16] VITALS: BP 136/78
[2016-12-24] MEDS: ATORVASTATIN 20 MG TAB PO SCH (23:03)
[2016-12-24] MEDS: INSULIN DETEMIR(LEVEMIR) 1unit/0.01ml Soln (100units/ml) SC SCH (23:04)
[2016-12-25] MEDS: ACCU-CHEK COMFORT CURVE STRIP VI SCH ×5 (00:02→15:25)
[2016-12-25] MEDS: InsuLIN REG 1unit/0.01ml Soln (100units/ml) SC SCH ×5 (00:05→15:31)
[2016-12-25] MEDS: HYDROmorphone HCL 2 MG/ML VL IV PRN ×5 (01:04→18:51)
[2016-12-25] MEDS: PROMETHAZINE HCL 25 MG/ML 1ML IV PRN ×4 (04:24→18:51)
[2016-12-25 05:09] VITALS: BP 148/64
[2016-12-25] MEDS: SODIUM CHLORIDE 0.9% 1,000 ML IV SCH ×2 (06:07→16:33)
[2016-12-25 06:11] LABS: Basophils # (auto) 0 uL; Basophils % (auto) 0.7 % (0.0-2.0); Eosinophils # (auto) 0.1 uL; Eosinophils % (auto) 2.5 % (0.0-7.0); Hematocrit 34.4 % (36.0-46.0); Hemoglobin 11.1 g/dL (12.2-16.2); Lymphocytes # (auto) 1.3 uL; Mean Corpuscular Hemoglobin 27.3 pg (28.0-32.0); Mean Corpuscular Hgb Conc. 32.3 g/dL (32.0-36.0); Mean Corpuscular Volume 84.5 fL (80.0-100.0); Mean Platelet Volume 9.1 fL (6.9-10.8); Monocytes # (auto) 0.4 uL; Monocytes % (auto) 7.6 % (0.0-12.0); Neutrophils % (auto) 62.2 % (37.0-80.0); Nucleated Red Blood Cells % 0.1 %; Platelet Count (auto) 229 10^3/uL (140-450); White Blood Cell 4.9 10^3/uL (4.4-10.8)
[2016-12-25] MEDS: LEVOTHYROXINE SODIUM 50 MCG TAB PO SCH (06:27)
[2016-12-25] MEDS: PIPERACILLIN-TAZOB 3.375GM 100 ML IV SCH ×3 (06:27→18:28)
[2016-12-25 06:33] LABS: Albumin 2.4 g/dL (3.4-5.0); BUN/Creatinine Ratio 16.3; Bilirubin, Total 0.2 mg/dL (0.2-1.0); Calcium 8.7 mg/dL (8.5-10.1); Magnesium 2.1 mg/dL (1.6-2.6); Phosphorus 4.2 mg/dL (2.5-4.90); Potassium 3.9 mmol/L (3.5-5.1); Total Protein 7.3 g/dL (6.4-8.2)
[2016-12-25 09:00] VITALS: BP 147/94
[2016-12-25] MEDS: FAMOTIDINE (10MG/ML) 2ML VL IV SCH ×2 (09:54→21:50)
[2016-12-25] MEDS: GEMFIBROZIL 600 MG TAB PO SCH ×2 (09:55→21:50)
[2016-12-25] MEDS: ENOXAPARIN SOD 40 MG/0.4 ML SYRINGE SC SCH (09:55)
[2016-12-25] MEDS: SODIUM CHLOR 0.9% PF (SALINE LOCK) 10ML VIAL IV SCH ×2 (09:55→21:50)
[2016-12-25 13:00] VITALS: BP 142/84
[2016-12-25 17:00] VITALS: BP 151/89
[2016-12-25] MEDS ORDERED: TPN PER PHARMACY IV NR ×9 (20:00)
[2016-12-25] MEDS: ATORVASTATIN 20 MG TAB PO SCH (21:50)
[2016-12-25 22:00] VITALS: BP 130/76
[2016-12-25] MEDS: HYDROcodone-ACET 7.5/325MG TAB PO PRN (22:02)
[2016-12-25] MEDS: INSULIN DETEMIR(LEVEMIR) 1unit/0.01ml Soln (100units/ml) SC SCH (22:03)
[2016-12-26] MEDS: ACCU-CHEK COMFORT CURVE STRIP VI SCH ×3 (00:20→12:00)
[2016-12-26] MEDS: InsuLIN REG 1unit/0.01ml Soln (100units/ml) SC SCH ×3 (00:23→12:41)
[2016-12-26] MEDS: HYDROcodone-ACET 7.5/325MG TAB PO PRN ×2 (04:07→10:15)
[2016-12-26] MEDS: PROMETHAZINE HCL 25 MG/ML 1ML IV PRN ×2 (04:30→09:14)
[2016-12-26 05:00] VITALS: BP 122/73
[2016-12-26] MEDS: LEVOTHYROXINE SODIUM 50 MCG TAB PO SCH (06:23)
[2016-12-26 06:56] LABS: Albumin 2.8 g/dL (3.4-5.0); Bilirubin, Total 0.2 mg/dL (0.2-1.0); Calcium 9.6 mg/dL (8.5-10.1); Magnesium 2.1 mg/dL (1.6-2.6); Phosphorus 5.2 mg/dL (2.5-4.90); Potassium 4.4 mmol/L (3.5-5.1); Total Protein 8.4 g/dL (6.4-8.2)
[2016-12-26 08:46] VITALS: BP 144/87
[2016-12-26] MEDS: FAMOTIDINE (10MG/ML) 2ML VL IV SCH (09:14)
[2016-12-26] MEDS: GEMFIBROZIL 600 MG TAB PO SCH (09:14)
[2016-12-26] MEDS: ENOXAPARIN SOD 40 MG/0.4 ML SYRINGE SC SCH (09:15)
[2016-12-26] MEDS: SODIUM CHLOR 0.9% PF (SALINE LOCK) 10ML VIAL IV SCH (09:15)
[2016-12-26 12:14] VITALS: BP 123/83
[2016-12-26 12:29] VITALS: BP 123/83
== END 2016-12-26 13:44 | disposition home or self-care (01) | DRG 282 ==
LOC: ER 11:13 → EDBD 11:13 → TELE 11:14 → TELE-EAST 12-13 03:27
PROVIDERS: ADMIT Nurse Practitioner Family; ATTEND Internal Medicine Pulmonary Disease
DX: K85.81 Other acute pancreatitis with uninfected necrosis (principal); E11.40 Type 2 diabetes mellitus with diabetic neuropathy, unspecified; E44.0 Moderate protein-calorie malnutrition; K76.0 Fatty (change of) liver, not elsewhere classified; E11.65 Type 2 diabetes mellitus with hyperglycemia; E87.1 Hypo-osmolality and hyponatremia; E83.51 Hypocalcemia; K86.1 Other chronic pancreatitis; E78.5 Hyperlipidemia, unspecified; E66.01 Morbid (severe) obesity due to excess calories; Z68.42 Body mass index [BMI] 45.0-49.9, adult
CPT/HCPCS: 36415; 36569; 71010; 74176; 74177; 80053; 80061; 80307; 81001; 82040; 82150; 82962; 83036; 83690; 83735; 84100; 84439; 84443; 84478; 84484; 84702; 85007; 85025; 85027; 85610; 85652; 86141; 94761; 96361; 96365; 96375; J0610; J0696; J1815; J1885; J2543; J3480; J3490; J7131

== ENCOUNTER 2017-01-14 14:57 | Observation (INO) | payer MEDICAID ==
[~2017-01-14] VITALS: Ht 162.6 cm; Wt 117.9 kg
[~2017-01-14 14:57] MED LIST changes: -METF-370 PO
[2017-01-14] MEDS ORDERED: SODIUM CHLORIDE 0.9% 1,000 ML IVB ONE (15:12)
[2017-01-14] MEDS ORDERED: NOREPINEPHRINE 8 MG/250ML KIT 250 ML IV ONE (15:13)
[2017-01-14 15:38] LABS: Basophils # (auto) 0.1 uL; Basophils % (auto) 0.7 % (0.0-2.0); Monocytes # (auto) 0.6 uL; White Blood Cell 12.7 10^3/uL (4.4-10.8)
[2017-01-14 15:40] LABS: Eosinophils # (auto) 0.2 uL; Eosinophils % (auto) 1.5 % (0.0-7.0); Hematocrit 29.6 % (36.0-46.0); Hemoglobin 9.2 g/dL (12.2-16.2); Lymphocytes # (auto) 3.5 uL; Lymphocytes % (auto) 27.5 % (10.0-50.0); Mean Corpuscular Hemoglobin 26.6 pg (28.0-32.0); Mean Corpuscular Volume 85.8 fL (80.0-100.0); Mean Platelet Volume 9.6 fL (6.9-10.8); Neutrophils # (auto) 8.3 uL; Neutrophils % (auto) 65.3 % (37.0-80.0); Nucleated Red Blood Cells % 0.1 %; Platelet Count (auto) 473 10^3/uL (140-450); Red Cell Distribution Width 16.3 % (11.8-14.3)
[2017-01-14 15:56] LABS: Partial Thromboplastin Time 22.4 sec (22.64-33.71); Prothrombin Time 10.9 sec (9.37-12.3)
[2017-01-14 15:58] LABS: Albumin 2.2 g/dL (3.4-5.0); BUN/Creatinine Ratio 23.1; Potassium 4.6 mmol/L (3.5-5.1); Total Protein 6.3 g/dL (6.4-8.2)
[2017-01-14 15:59] LABS: Lactic Acid w/Reflex 6.3 mmol/L (0.4-2.0)
[2017-01-14 16:05] LABS: Bilirubin, Total 0.2 mg/dL (0.2-1.0)
[2017-01-14] MEDS ORDERED: InsuLIN REG 1unit/0.01ml Soln (100units/ml) IV ONE (16:30)
[2017-01-14 16:33] LABS: REFLEX LACTIC ACID YES OR NO YES
[2017-01-14] MEDS ORDERED: ONDANSETRON HCL 4 MG/2 ML VIAL IV ONE ×2 (16:45→20:15)
[2017-01-14] MEDS ORDERED: PANTOPRAZOLE 40 MG/10 ML VIAL IV ONE ×2 (16:45→18:00)
[2017-01-14] MEDS ORDERED: SODIUM CHLORIDE 0.9% 1,000 ML IV SCH (16:49)
[2017-01-14] MEDS ORDERED: NOREPINEPHRINE 8 MG/250ML KIT 250 ML IV SCH (17:00)
[2017-01-14] MEDS ORDERED: DOCUSATE SOD 100 MG CAP PO PRN (17:00)
[2017-01-14] MEDS ORDERED: ACETAMINOPHEN 325 MG TAB PO PRN (17:00)
[2017-01-14] MEDS ORDERED: HYDROcodone-ACET 5/325MG TAB PO PRN (17:00)
[2017-01-14] MEDS ORDERED: TEMAZEPAM 15 MG CAP PO PRN (17:00)
[2017-01-14] MEDS ORDERED: cefTRIAXone 1GM/50ML D5W 50 ML IV ONE (17:00)
[2017-01-14] MEDS ORDERED: ONDANSETRON HCL 4 MG/2 ML VIAL IV PRN (17:00)
[2017-01-14] MEDS ORDERED: MORPHINE SULFATE 10 MG/ML INJ 1ML SDV IV PRN ×2 (17:00)
[2017-01-14] MEDS ORDERED: VANCOMYCIN PER PHARMACY 0 MG IV SCH (17:00)
[2017-01-14] MEDS ORDERED: NITROGLYCERIN 0.4 MG SL TAB SL PRN (17:00)
[2017-01-14] MEDS ORDERED: InsuLIN R (HUMAN) 100 UNITS in SODIUM CHL 0.9% 99 ML IV SCH (17:21)
[2017-01-14] MEDS ORDERED: DEXTROSE (50%) 50ML SYRG IV PRN (17:30)
[2017-01-14 17:51] LABS: Allen Test Yes; Base Excess -5.3 mmol/L (-2.0-2.0); Blood 02Sat 93.8 % (96-100); Blood COHb 0.3 % (0.5-1.5); Blood MetHb 0.3 % (0.0-1.5); HCO3 19.5 mmol/L (22-26.0); HHb 6.2 % (0.0-5.0); MODE NASAL CANNULA; O2Hb 93.2 % (94.0-97.0); PCO2 35.2 mmHg (35.0-45.0); PCO2(T) 35.2 mmHg (35.0-45.0); PO2 84.1 mmHg (80.0-100.0); PO2(T) 84.1 mmHg (80.0-100.0); Sample Type Arterial; pH 7.362 (7.350-7.450)
[2017-01-14 17:57] LABS: B-Type Natriuretic Peptide 6.2 pg/mL (0-100)
[2017-01-14] MEDS ORDERED: Boost Glucose Control 8 Ounces PO SCH (18:00)
[2017-01-14] MEDS ORDERED: glipiZIDE 5 MG TAB PO SCH (18:00)
[2017-01-14] MEDS ORDERED: FAMOTIDINE (10MG/ML) 2ML VL IV ONE (18:00)
[2017-01-14] MEDS ORDERED: VANCOMYCIN 1,250 MG in D5W 5% 250 ML IV SCH (18:00)
[2017-01-14 18:09] LABS: Temperature: 21.6 C (20.0-25.0)
[2017-01-14] MEDS ORDERED: OCTREOTIDE ACETATE 500 MCG in SODIUM CHL 0.9% 99 ML IV SCH (18:30)
[2017-01-14] MEDS ORDERED: PANTOPRAZOLE 80 MG in SODIUM CHL 0.9% 60 ML IV ONE (18:30)
[2017-01-14] MEDS: ACCU-CHEK COMFORT CURVE STRIP VI SCH ×2 (19:00→19:34)
[2017-01-14 19:28] LABS: Hematocrit 26.9 % (36.0-46.0); Hemoglobin 8.2 g/dL (12.2-16.2)
[2017-01-14 19:57] LABS: BUN/Creatinine Ratio 31.2; Calcium 7.6 mg/dL (8.5-10.1); Potassium 5.4 mmol/L (3.5-5.1)
[2017-01-14] MEDS ORDERED: MORPHINE SULFATE 10 MG/ML INJ 1ML SDV IV ONE (20:15)
[2017-01-14 20:22] VITALS: BP 69/36
[2017-01-14 20:36] VITALS: BP 74/41
[2017-01-14 20:54] VITALS: BP 112/59
[2017-01-14] MEDS ORDERED: FAMOTIDINE (10MG/ML) 2ML VL IV SCH (22:00)
[2017-01-15] MEDS ORDERED: cefTRIAXone 1GM/50ML D5W 50 ML IV SCH (09:00)
[2017-01-15] MEDS ORDERED: PANTOPRAZOLE 40 MG/10 ML VIAL IV SCH (10:00)
[2017-01-15] MEDS ORDERED: MULTIPLE VITAMIN TAB PO SCH (10:00)
== END 2017-01-14 21:23 | disposition short-term general hospital (02) | DRG 253 ==
LOC: EDBD 14:57 → ER 15:07 → UNDOADMIN 15:08 → TELE 15:08 → OVERFLOW 15:14 → ER 21:23
PROVIDERS: ADMIT Family Medicine; ATTEND Family Medicine
DX: K92.0 Hematemesis (principal); E13.10 Other specified diabetes mellitus with ketoacidosis without coma; K86.1 Other chronic pancreatitis; D64.9 Anemia, unspecified
CPT/HCPCS: 36415; 36600; 71010; 74176; 80048; 80053; 82150; 82805; 82962; 83036; 83605; 83690; 83735; 83880; 84443; 84702; 85014; 85018; 85025; 85610; 85730; 86850; 86900; 86901; 86920; 87040; 93005; C9113; G0378; J0696; J1815; J2270; J2405; J3370; J7030; P9016; 36430; 96361; 96365; 96367; 96375; 96376; 99291; J7060